=== PATIENT | female | born 1950 | race Caucasian/White ===

== ENCOUNTER → 2017-01-27 | Outpatient (CLI) | payer BC ==
[~2017-01-27] MED LIST: CALCIUM 600 +1 EA14 PO; CALCIUM600 MG PO; COZAAR25 MG PO; FISH OIL1000 MG PO; FLONASE 50 MCG/16 GM NOSE; K-TAB ER20 MEQ PO; MOBIC7.5 MG PO; NEURONTIN300 MG PO; NORCO 5-325 MG1 TAB PO; PRILOSEC40 MG PO; PROAIR HFA8.5 GM INH; VITAMIN C500 M1 PO; VITAMIN D-40400 UNIT PO
== END | disposition disaster alternative care site (69) ==
LOC: GRAD 09:56
DX: R91.8 Other nonspecific abnormal finding of lung field (principal)

== ENCOUNTER → 2017-03-06 | Outpatient (CLI) | payer BC | END | disposition disaster alternative care site (69) | LOC: GRAD 14:41 | DX: R10.31 Right lower quadrant pain (principal); D18.03 Hemangioma of intra-abdominal structures; Q61.02 Congenital multiple renal cysts; I70.90 Unspecified atherosclerosis; Z90.710 Acquired absence of both cervix and uterus; Z90.49 Acquired absence of other specified parts of digestive tract | CPT/HCPCS: Q9967 ==